=== PATIENT | male | born 1955 | race Two or more races ===

== ENCOUNTER 2024-08-09 20:44 | Emergency (ER) | payer OTHER ==
[~2024-08-09] VITALS: Ht 177.8 cm; Wt 85.7 kg
[2024-08-09 21:48] LABS: Urine Bacteria None Seen /hpf (None Seen)
[2024-08-09 22:11] LABS: Urine Blood 3+ /uL (Negative); Urine Clarity Clear (Clear); Urine Color Yellow (Yellow); Urine Mucus FEW (None Seen); Urine Protein, UAD 1+ (Negative); Urine Specific Gravity 1.031 (1.001-1.035); Urine Urobilinogen 2 mg/dL (Negative); Urine WBC 77 /hpf (0 - 3); Urine pH 5.5 (5.0-9.0)
[2024-08-09 22:19] LABS: Basophils # (auto) 0.2 10 ^3/uL (0-0.2); Eosinophils # (auto) 0 10 ^3/uL (0-0.8); Eosinophils % (auto) 0.1 % (0.0-7.0); Hematocrit 46.2 % (41.0-53.0); Hemoglobin 15.8 g/dL (13.5-17.5); Lymphocytes # (auto) 2.9 10 ^3/uL (0.4-5.4); Lymphocytes % (auto) 16.6 % (10.0-50.0); Mean Corpuscular Hemoglobin 32.1 pg (28.0-32.0); Mean Corpuscular Hgb Conc. 34.1 g/dL (32.0-36.0); Monocytes # (auto) 1.7 10 ^3/uL (0-1.3); Monocytes % (auto) 9.6 % (0.0-12.0); Neutrophils # (auto) 12.5 10 ^3/uL (1.6-8.6); Neutrophils % (auto) 72.7 % (37.0-80.0); Nucleated Red Blood Cells % 0.1 %; Platelet Count (auto) 330 10^3/uL (140-450); Red Blood Cells 4.91 10^6/uL (4.5-5.90); Red Cell Distribution Width 13.7 % (11.8-14.3); White Blood Cell 17.3 10^3/uL (4.4-10.8)
[2024-08-09 22:28] LABS: Chloride 101 mmol/L (98-107); Sodium 135 mmol/L (136-145)
[2024-08-09 22:29] LABS: Anion Gap 8 (5-15); Carbon Dioxide 26 mmol/L (20-31)
[2024-08-09 22:35] LABS: BUN/Creatinine Ratio 10.2 (10.0-20.0); Blood Urea Nitrogen 13 mg/dL (9-23); Glucose 90 mg/dL (74-106)
[2024-08-09 22:41] VITALS: TEMP 98.1
[2024-08-09 23:01] VITALS: RESP 36; O2SAT 98
[2024-08-09] MEDS: KETOROLAC TROMETH 60MG/2ML VIAL IM ONE (23:01)
[2024-08-09] MEDS ORDERED: LEVO500T91 PO (23:24)
[2024-08-09] MEDS ORDERED: IBUP-1455 PO (23:24)
[2024-08-09] MEDS ORDERED: ACE3T PO (23:24)
[2024-08-10] MEDS: HYDROcodone-ACET 5/325MG TAB PO ONE (00:13)
[2024-08-10] MEDS: levoFLOXacin 250 MG TAB PO ONE (00:13)
[2024-08-10 00:14] VITALS: BP 135/79; PULSE 99; RESP 18; O2SAT 95
== END 2024-08-09 23:26 | disposition home or self-care (01) ==
LOC: ER 20:44
DX: N39.0 Urinary tract infection, site not specified (principal)
CPT/HCPCS: 36415; 74176; 80048; 81001; 85025; J1885